=== PATIENT | female | born 1965 | race Two or more races ===

== ENCOUNTER 2022-02-08 09:37 | Inpatient (IN) | payer BC ==
[2022-02-08 10:44] VITALS: BMI 17.8
[2022-02-08] MEDS ORDERED: BISMUTH SUBSALICYLATE 262 MG/15 ML BTL PO PRN (11:23)
[2022-02-08] MEDS ORDERED: MAG HYDROX/AL HYDROX/SIMETH 30 ML UNIT-DOSE CUP PO PRN (11:23)
[2022-02-08] MEDS ORDERED: NICOTINE POLACRILEX 2 MG GUM BUC PRN (11:23)
[2022-02-08] MEDS ORDERED: ACETAMINOPHEN 325 MG TABLET (FP) PO PRN ×2 (11:23)
[2022-02-08] MEDS ORDERED: IBUPROFEN 400 MG TABLET (FP) PO PRN (11:23)
[2022-02-08] MEDS ORDERED: BENZOCAINE/MENTHOL (CHLORASEPTIC ) LOZENGE MM PRN (11:23)
[2022-02-08] MEDS ORDERED: DICYCLOMINE HCL 10 MG CAPSULE PO PRN (11:23)
[2022-02-08] MEDS ORDERED: NICOTINE 10 MG CARTRIDGE (INHALER) IH PRN (11:23)
[2022-02-08] MEDS ORDERED: ONDANSETRON *ODT* 4 MG TABLET SL PRN (11:23)
[2022-02-08] MEDS ORDERED: MAGNESIUM CITRATE 300 ML BOTTLE PO PRN (11:23)
[2022-02-08] MEDS ORDERED: MAGNESIUM HYDROX 2400MG/30ML ORAL SUSPENSION 30 ML CUP PO PRN (11:23)
[2022-02-08] MEDS ORDERED: LOPERAMIDE HCL 2 MG CAPSULE PO PRN (11:23)
[2022-02-08] MEDS ORDERED: NALOXONE HCL (KLOXXADO) 8 MG SPRAY NS PRN (11:23)
[2022-02-08] MEDS ORDERED: IBUPROFEN 600 MG TABLET (FP) PO PRN (11:23)
[2022-02-08] MEDS: PANTOPRAZOLE 20 MG TABLET PO SCH (12:08)
[2022-02-08] MEDS: PRENATAL VITAMINS W/ FOLIC ACID TABLET (FP) PO SCH (12:08)
[2022-02-08] MEDS: METHOCARBAMOL 500 MG TABLET PO PRN ×2 (14:31→17:32)
[2022-02-08] MEDS: hydrOXYzine PAMOATE 25 MG CAPSULE (FP) PO PRN ×3 (14:31→22:27)
[2022-02-08] MEDS: ARIPiprazole 10 MG TABLET PO SCH (15:00)
[2022-02-08] MEDS: SERTRALINE HCL 50 MG TABLET (FP) PO SCH (15:04)
[2022-02-08 15:39] LABS: HEMATOCRIT 32.4 % (32.4-45.2); HEMOGLOBIN 10.9 GM/dL (10.7-15.3); MCH 32.3 pg (25.7-33.7); MCHC 33.6 g/dl (32.0-36.0); MEAN CELL VOLUME 96.1 fl (80-96); MEAN PLT VOLUME 7.4 fl (7.5-11.1); PLATELET COUNT 351 10^3/uL (134-434); RBC 3.37 M/mm3 (3.60-5.2); RDW 18.2 % (11.6-15.6); WHITE BLOOD COUNT 4.6 K/mm3 (4.0-10.0)
[2022-02-08 16:20] LABS: CALCIUM 8.9 mg/dL (8.5-10.1)
[2022-02-08 16:21] LABS: ALBUMIN 3.6 g/dl (3.4-5.0); BLOOD UREA NITROGEN 11.5 mg/dL (7-18)
[2022-02-08 16:24] LABS: CREATININE 0.7 mg/dL (0.55-1.3)
[2022-02-08 16:26] LABS: BILIRUBIN,TOTAL 0.6 mg/dL (0.2-1); TOT PROT 7.6 g/dl (6.4-8.2)
[2022-02-08] MEDS: chlordiazePOXIDE HCL 25 MG CAPSULE PO SCH ×2 (17:32→22:27)
[2022-02-08] MEDS ORDERED: MELATONIN 5 MG TABLETS PO SCH (22:00)
[2022-02-08] MEDS ORDERED: THIAMINE HCL 100 MG TABLET (FP) PO SCH (22:00)
[2022-02-08 22:33] VITALS: RESP 18
[2022-02-09] MEDS: hydrOXYzine PAMOATE 25 MG CAPSULE (FP) PO PRN (02:52)
[2022-02-09] MEDS: chlordiazePOXIDE HCL 25 MG CAPSULE PO SCH ×3 (06:00→17:43)
[2022-02-09] MEDS: PRENATAL VITAMINS W/ FOLIC ACID TABLET (FP) PO SCH (09:32)
[2022-02-09] MEDS: ARIPiprazole 10 MG TABLET PO SCH (09:33)
[2022-02-09 09:51] VITALS: BP 151/96; PULSE 70; TEMP 97.3
[2022-02-09] MEDS: SERTRALINE HCL 50 MG TABLET (FP) PO SCH (10:40)
[2022-02-09] MEDS: PANTOPRAZOLE 20 MG TABLET PO SCH (10:40)
[2022-02-10] MEDS ORDERED: chlordiazePOXIDE HCL 25 MG CAPSULE PO SCH (05:00)
[2022-02-11] MEDS ORDERED: chlordiazePOXIDE HCL 10 MG CAPSULE PO SCH (05:00)
[2022-02-12] MEDS ORDERED: chlordiazePOXIDE HCL 10 MG CAPSULE PO SCH (05:00)
[2022-02-13] MEDS ORDERED: chlordiazePOXIDE HCL 10 MG CAPSULE PO ONE (05:00)
== END 2022-02-09 23:22 | disposition short-term general hospital (02) | DRG 775 ==
LOC: YASAS 09:37 → Y6N 11:26
PROVIDERS: ADMIT Allergy & Immunology; ATTEND Surgery
PROC: HZ2ZZZZ Detoxification Services for Substance Abuse Treatment (ICD-10-PCS; principal; 2022-02-08)
DX: F10.230 Alcohol dependence with withdrawal, uncomplicated (principal); F12.20 Cannabis dependence, uncomplicated; F17.210 Nicotine dependence, cigarettes, uncomplicated; F33.1 Major depressive disorder, recurrent, moderate; F10.24 Alcohol dependence with alcohol-induced mood disorder; F10.282 Alcohol dependence with alcohol-induced sleep disorder; J45.909 Unspecified asthma, uncomplicated; K42.9 Umbilical hernia without obstruction or gangrene; K21.9 Gastro-esophageal reflux disease without esophagitis; R10.13 Epigastric pain; R11.10 Vomiting, unspecified; Z87.11 Personal history of peptic ulcer disease; Z98.84 Bariatric surgery status
CPT/HCPCS: 36415; 80053; 85027; 86780; 93005; 93010; C9803-CS; Q0162; U0003; U0005

== ENCOUNTER 2022-02-09 10:19 | Inpatient (IN) | payer BC ==
[2022-02-09] MEDS ORDERED: ACETAMINOPHEN 1000 MG/100 ML BAG IVPB ONE (10:34)
[2022-02-09] MEDS ORDERED: SODIUM CHLORIDE 0.9% 500 ML INFUS.BAG IV ONE ×2 (10:34→19:45)
[2022-02-09] MEDS ORDERED: ACETAMINOPHEN INJECTION 100 ML IVPB ONE (10:48)
[2022-02-09 11:44] LABS: CHLORIDE 104 mmol/L (98-107); SODIUM 136 mmol/L (136-145)
[2022-02-09 11:46] LABS: ALBUMIN 3.2 g/dl (3.4-5.0); BLOOD UREA NITROGEN 9.6 mg/dL (7-18); CALCIUM 8.9 mg/dL (8.5-10.1); CO2 27 mmol/L (21-32); GLUCOSE,RANDOM 84 mg/dL (74-106); LIPASE 68 U/L (73-393); MAGNESIUM 1.9 mg/dL (1.8-2.4)
[2022-02-09 11:49] LABS: CREATININE 0.7 mg/dL (0.55-1.3)
[2022-02-09 11:50] LABS: BILIRUBIN,TOTAL 0.3 mg/dL (0.2-1); HEMATOCRIT 34.1 % (32.4-45.2); HEMOGLOBIN 11.1 GM/dL (10.7-15.3); MCH 31.1 pg (25.7-33.7); MCHC 32.6 g/dl (32.0-36.0); MEAN CELL VOLUME 95.4 fl (80-96); MEAN PLT VOLUME 8.6 fl (7.5-11.1); PLATELET COUNT 399 10^3/uL (134-434); RBC 3.57 M/mm3 (3.60-5.2); RDW 18.4 % (11.6-15.6); SGOT/AST 71 U/L (15-37); TOT PROT 7.4 g/dl (6.4-8.2); WHITE BLOOD COUNT 3.5 K/mm3 (4.0-10.0)
[2022-02-09 11:52] LABS: ALK PHOS 96 U/L (45-117)
[2022-02-09 11:54] LABS: ANION GAP 4 MMOL/L (8-16); SGPT/ALT 40 U/L (13-61)
[2022-02-09] MEDS ORDERED: morphine CARPU-JECT 4 MG/1 ML DISP.SYRIN IVPUSH ONE ×2 (12:05→13:45)
[2022-02-09] MEDS ORDERED: FAMOTIDINE 20 MG/50 ML IVPB 20 MG/50 ML MG IVPB ONE ×2 (12:05→12:49)
[2022-02-09] MEDS ORDERED: MAG HYDROX/AL HYDROX/SIMETH 30 ML UNIT-DOSE CUP PO ONE (12:05)
[2022-02-09 12:26] LABS: ANISOCYTOSIS 1+; MACROCYTOSIS 0
[2022-02-09] MEDS ORDERED: morphine SULFATE 4 MG/ML VIAL ONE ×2 (12:49→14:53)
[2022-02-09] MEDS ORDERED: MAG HYDROX/AL HYDROX/SIMETH 30 ML UNIT-DOSE CUP ONE (12:49)
[2022-02-09 13:53] LABS: BLOOD UREA NITROGEN 9.1 mg/dL (7-18); CALCIUM 8.7 mg/dL (8.5-10.1)
[2022-02-09 13:57] LABS: CREATININE 0.6 mg/dL (0.55-1.3)
[2022-02-09 15:55] LABS: URINE APPEARANCE CLEAR; URINE BILIRUBIN NEGATIVE (NEGATIVE); URINE COLOR YELLOW; URINE GLUCOSE (UA) NEGATIVE (NEGATIVE); URINE KETONE NEGATIVE (NEGATIVE); URINE LEUK ESTERASE NEGATIVE (NEGATIVE); URINE NITRITE NEGATIVE (NEGATIVE); URINE PROTEIN NEGATIVE (NEGATIVE)
[2022-02-09 15:57] LABS: URINE RBC 14 /uL (0-23.9)
[2022-02-09 15:58] LABS: EPI CELLS 5 /uL (0-25.1); HYALINE CASTS 0 /uL (0-3.1); URINE BACTERIA 84 /uL (0-1359); URINE WBC 7 /uL (0-25.8)
[2022-02-09] MEDS ORDERED: HYDROmorphone HCL CARPU-JECT 2 MG/1 ML DISP.SYRIN IVPUSH ONE (17:11)
[2022-02-09] MEDS ORDERED: HYDROmorphone HCl 2 MG/ML VIAL ONE (17:21)
[2022-02-09] MEDS ORDERED: LACTATED RINGERS SOLUTION 1,000 ML/1,000 ML INFUS.BAG IV SCH ×2 (20:00→23:45)
[2022-02-09] MEDS: busPIRone HCL 5 MG TABLET PO SCH (22:29)
[2022-02-10] MEDS ORDERED: LORazepam 1 MG TABLET PO PRN (00:20)
[2022-02-10] MEDS: LORazepam 2 MG TABLET PO SCH ×3 (01:47→13:07)
[2022-02-10 03:14] VITALS: RESP 20; BMI 17.0
[2022-02-10] MEDS ORDERED: ALBUTEROL SO4 HFA INHALER IH PRN (04:15)
[2022-02-10 09:22] LABS: EOS % 1.9 % (0-4.5); HEMATOCRIT 33.9 % (32.4-45.2); HEMOGLOBIN 11.1 GM/dL (10.7-15.3); LYMPH % 11.2 % (8-40); MCH 31.8 pg (25.7-33.7); MCHC 32.8 g/dl (32.0-36.0); MEAN CELL VOLUME 96.9 fl (80-96); MEAN PLT VOLUME 7.7 fl (7.5-11.1); MONO % 7.4 % (3.8-10.2); NEUT % 78.5 % (42.8-82.8); PLATELET COUNT 303 10^3/uL (134-434); RDW 18.6 % (11.6-15.6); WHITE BLOOD COUNT 4.8 K/mm3 (4.0-10.0)
[2022-02-10] MEDS: busPIRone HCL 5 MG TABLET PO SCH (09:37)
[2022-02-10 09:47] LABS: ALBUMIN 3.3 g/dl (3.4-5.0); BLOOD UREA NITROGEN 7.8 mg/dL (7-18)
[2022-02-10 09:49] LABS: CALCIUM 8.8 mg/dL (8.5-10.1)
[2022-02-10 09:51] LABS: CREATININE 0.6 mg/dL (0.55-1.3); PHOSPHOROUS 3.6 mg/dL (2.5-4.9)
[2022-02-10 09:53] LABS: BILIRUBIN,TOTAL 0.5 mg/dL (0.2-1); TOT PROT 6.8 g/dl (6.4-8.2)
[2022-02-10] MEDS ORDERED: NICOTINE 7 MG/24 HOURS TOPICAL PATCH TD SCH (10:00)
[2022-02-10] MEDS ORDERED: ARIPiprazole 15 MG TABLET PO SCH (10:00)
[2022-02-10] MEDS ORDERED: FOLIC ACID 1 MG TABLET (FP) PO SCH (10:00)
[2022-02-10] MEDS ORDERED: THIAMINE HCL 100 MG TABLET (FP) PO SCH ×2 (10:00)
[2022-02-10] MEDS ORDERED: SERTRALINE HCL 50 MG TABLET (FP) PO SCH (10:00)
[2022-02-10] MEDS ORDERED: ARIPiprazole 5 MG TABLET PO SCH (11:17)
[2022-02-10] MEDS ORDERED: LORazepam 1 MG TABLET PO SCH (11:52)
[2022-02-10 15:35] VITALS: BP 143/89; PULSE 80; TEMP 97.6
[2022-02-11] MEDS ORDERED: LORazepam 1 MG TABLET PO SCH (01:00)
[2022-02-12] MEDS ORDERED: LORazepam 0.5 MG TABLET PO PRN
[2022-02-12] MEDS ORDERED: LORazepam 0.5 MG TABLET PO SCH (01:00)
[2022-02-13] MEDS ORDERED: LORazepam 0.5 MG TABLET PO ONE (01:00)
== END 2022-02-10 16:05 | disposition left against medical advice (07) | DRG 254 ==
LOC: JER 10:19 → JERBED 19:40 → J8W 20:37
PROVIDERS: ADMIT Internal Medicine; ATTEND Internal Medicine
DX: K43.0 Incisional hernia with obstruction, without gangrene (principal); K86.1 Other chronic pancreatitis; K76.0 Fatty (change of) liver, not elsewhere classified; K86.89 Other specified diseases of pancreas; D72.819 Decreased white blood cell count, unspecified; F12.90 Cannabis use, unspecified, uncomplicated; F17.210 Nicotine dependence, cigarettes, uncomplicated; J45.909 Unspecified asthma, uncomplicated; R11.10 Vomiting, unspecified
CPT/HCPCS: 0241U-QW; 36415; 71045-TC-FY; 73590-TC-RT-FY; 74177-TC; 76705-TC; 76775-TC; 80048; 80053; 81003; 82962; 83605; 83690; 83735; 84100; 84484; 85025; 87086; 93005; 93010; 99285-25; Q9967

== ENCOUNTER 2022-05-30 14:03 | Inpatient (IN) | payer BC ==
[2022-05-30 20:15] VITALS: BMI 20.2
[2022-05-30] MEDS ORDERED: IBUPROFEN 400 MG TABLET (FP) PO PRN (20:40)
[2022-05-30] MEDS ORDERED: ACETAMINOPHEN 325 MG TABLET (FP) PO PRN ×2 (20:40)
[2022-05-30] MEDS ORDERED: POLYETHYLENE GLYCOL (HEALTHYLAX) 3350 17 GM PACKET PO PRN (20:40)
[2022-05-30] MEDS ORDERED: BISMUTH SUBSALICYLATE 524 MG/30 ML PO PRN (20:40)
[2022-05-30] MEDS ORDERED: MAGNESIUM HYDROX 2400MG/30ML ORAL SUSPENSION 30 ML CUP PO PRN (20:40)
[2022-05-30] MEDS ORDERED: hydrOXYzine PAMOATE 25 MG CAPSULE (FP) PO PRN (20:40)
[2022-05-30] MEDS ORDERED: DICYCLOMINE HCL 10 MG CAPSULE PO PRN (20:40)
[2022-05-30] MEDS ORDERED: LOPERAMIDE HCL 2 MG CAPSULE PO PRN (20:40)
[2022-05-30] MEDS ORDERED: BENZOCAINE/MENTHOL (CHLORASEPTIC ) LOZENGE MM PRN (20:40)
[2022-05-30] MEDS ORDERED: NICOTINE POLACRILEX 2 MG GUM BUC PRN (20:40)
[2022-05-30] MEDS ORDERED: NALOXONE HCL (KLOXXADO) 8 MG SPRAY NS PRN (20:40)
[2022-05-30] MEDS ORDERED: ONDANSETRON *ODT* 4 MG TABLET SL PRN (20:40)
[2022-05-30] MEDS ORDERED: MAG HYDROX/AL HYDROX/SIMETH 30 ML UNIT-DOSE CUP PO PRN (20:40)
[2022-05-30] MEDS ORDERED: MELATONIN 5 MG TABLETS PO SCH (22:00)
[2022-05-30] MEDS: THIAMINE HCL 100 MG TABLET (FP) PO SCH (22:44)
[2022-05-30] MEDS: METHOCARBAMOL 500 MG TABLET PO PRN (22:44)
[2022-05-31] MEDS: SERTRALINE HCL 50 MG TABLET (FP) PO SCH (10:48)
[2022-05-31] MEDS: PRENATAL VITAMINS W/ FOLIC ACID TABLET (FP) PO SCH (10:48)
[2022-05-31] MEDS: METHOCARBAMOL 500 MG TABLET PO PRN (10:49)
[2022-05-31] MEDS: chlordiazePOXIDE HCL 25 MG CAPSULE PO SCH ×3 (10:49→22:31)
[2022-05-31] MEDS: NICOTINE 14 MG/24 HOURS TOPICAL PATCH TD SCH (10:49)
[2022-05-31] MEDS: ARIPiprazole 15 MG TABLET PO SCH (10:51)
[2022-05-31 13:50] LABS: HEMATOCRIT 30.7 % (32.4-45.2); HEMOGLOBIN 10.3 GM/dL (10.7-15.3); MCH 30.6 pg (25.7-33.7); MCHC 33.7 g/dl (32.0-36.0); MEAN CELL VOLUME 90.9 fl (80-96); PLATELET COUNT 470 10^3/uL (134-434); RBC 3.38 M/mm3 (3.60-5.2); RDW 20.8 % (11.6-15.6); WHITE BLOOD COUNT 3.4 K/mm3 (4.0-10.0)
[2022-05-31 14:45] LABS: ALBUMIN 3.6 g/dl (3.4-5.0); CALCIUM 9.4 mg/dL (8.5-10.1)
[2022-05-31] MEDS ORDERED: NICOTINE 10 MG CARTRIDGE (INHALER) IH SCH (14:45)
[2022-05-31 14:48] LABS: BILIRUBIN,TOTAL 0.3 mg/dL (0.2-1); CREATININE 0.8 mg/dL (0.55-1.3); TOT PROT 7.8 g/dl (6.4-8.2)
[2022-05-31] MEDS: NICOTINE 10 MG CARTRIDGE (INHALER) IH PRN (15:15)
[2022-05-31] MEDS: cloNIDine HCL 0.1 MG TABLET PO PRN (15:15)
[2022-05-31] MEDS ORDERED: SUVOREXANT 10 MG TABLET PO PRN (22:00)
[2022-05-31] MEDS: THIAMINE HCL 100 MG TABLET (FP) PO SCH (22:31)
[2022-06-01] MEDS: chlordiazePOXIDE HCL 25 MG CAPSULE PO SCH ×4 (05:42→22:19)
[2022-06-01] MEDS: ARIPiprazole 15 MG TABLET PO SCH (10:19)
[2022-06-01] MEDS: SERTRALINE HCL 50 MG TABLET (FP) PO SCH (10:20)
[2022-06-01] MEDS: NICOTINE 14 MG/24 HOURS TOPICAL PATCH TD SCH (10:20)
[2022-06-01] MEDS: PRENATAL VITAMINS W/ FOLIC ACID TABLET (FP) PO SCH (10:20)
[2022-06-01] MEDS: NICOTINE 10 MG CARTRIDGE (INHALER) IH PRN ×2 (15:13→17:22)
[2022-06-01] MEDS: IBUPROFEN 600 MG TABLET (FP) PO PRN (20:59)
[2022-06-01] MEDS: THIAMINE HCL 100 MG TABLET (FP) PO SCH (22:18)
[2022-06-01] MEDS: METHOCARBAMOL 500 MG TABLET PO PRN (22:18)
[2022-06-02] MEDS: IBUPROFEN 600 MG TABLET (FP) PO PRN ×2 (02:19→10:23)
[2022-06-02] MEDS: chlordiazePOXIDE HCL 25 MG CAPSULE PO SCH ×2 (04:54→10:21)
[2022-06-02] MEDS: cloNIDine HCL 0.1 MG TABLET PO PRN (07:36)
[2022-06-02 09:38] VITALS: BP 119/79; PULSE 79; RESP 18; TEMP 98
[2022-06-02] MEDS: SERTRALINE HCL 50 MG TABLET (FP) PO SCH (09:45)
[2022-06-02] MEDS: ARIPiprazole 15 MG TABLET PO SCH (09:46)
[2022-06-02] MEDS: PRENATAL VITAMINS W/ FOLIC ACID TABLET (FP) PO SCH (09:46)
[2022-06-02] MEDS: NICOTINE 10 MG CARTRIDGE (INHALER) IH PRN (09:46)
[2022-06-02] MEDS: NICOTINE 14 MG/24 HOURS TOPICAL PATCH TD SCH (09:46)
[2022-06-02] MEDS: METHOCARBAMOL 500 MG TABLET PO PRN (10:23)
[2022-06-03] MEDS ORDERED: chlordiazePOXIDE HCL 10 MG CAPSULE PO SCH (05:00)
[2022-06-04] MEDS ORDERED: chlordiazePOXIDE HCL 10 MG CAPSULE PO SCH (05:00)
[2022-06-05] MEDS ORDERED: chlordiazePOXIDE HCL 10 MG CAPSULE PO ONE (05:00)
== END 2022-06-02 12:23 | disposition left against medical advice (07) | DRG 770 ==
LOC: YASAS 14:03 → Y6N 21:30 → UNDOADMIN 21:30
PROVIDERS: ADMIT Allergy & Immunology; ATTEND Surgery
PROC: HZ2ZZZZ Detoxification Services for Substance Abuse Treatment (ICD-10-PCS; principal; 2022-05-30)
DX: F10.230 Alcohol dependence with withdrawal, uncomplicated (principal); F13.20 Sedative, hypnotic or anxiolytic dependence, uncomplicated; F12.20 Cannabis dependence, uncomplicated; F17.210 Nicotine dependence, cigarettes, uncomplicated; F33.1 Major depressive disorder, recurrent, moderate; J45.20 Mild intermittent asthma, uncomplicated; K21.9 Gastro-esophageal reflux disease without esophagitis; R55 Syncope and collapse; Z87.11 Personal history of peptic ulcer disease; Z98.84 Bariatric surgery status
CPT/HCPCS: 36415; 80053; 82962; 85027; 86780; C9803-CS; Q0162; U0003; U0005

== ENCOUNTER 2022-06-01 09:13 | Emergency (ER) | payer BC ==
[2022-06-01 09:30] VITALS: BP 141/80; PULSE 66; RESP 18; TEMP 98.9; BMI 20.5
[2022-06-01] MEDS ORDERED: SODIUM CHLORIDE 0.9% 500 ML INFUS.BAG IV ONE (10:24)
[2022-06-01 11:11] LABS: HEMATOCRIT 32.7 % (32.4-45.2); HEMOGLOBIN 10.8 GM/dL (10.7-15.3); MCH 30.2 pg (25.7-33.7); MCHC 33.1 g/dl (32.0-36.0); MEAN CELL VOLUME 91.4 fl (80-96); MEAN PLT VOLUME 7.1 fl (7.5-11.1); PLATELET COUNT 543 10^3/uL (134-434); RBC 3.58 M/mm3 (3.60-5.2); RDW 21.4 % (11.6-15.6); WHITE BLOOD COUNT 3.9 K/mm3 (4.0-10.0)
[2022-06-01 11:28] LABS: CALCIUM 9.7 mg/dL (8.5-10.1)
[2022-06-01 11:29] LABS: ALBUMIN 3.7 g/dl (3.4-5.0); BLOOD UREA NITROGEN 11.2 mg/dL (7-18)
[2022-06-01 11:32] LABS: CREATININE 0.6 mg/dL (0.55-1.3)
[2022-06-01 11:33] LABS: BILIRUBIN,TOTAL 0.4 mg/dL (0.2-1); TOT PROT 7.9 g/dl (6.4-8.2)
[2022-06-01 12:27] LABS: ANISOCYTOSIS 0; MACROCYTOSIS 0; TARGET CELLS 1+
== END 2022-06-01 13:07 | disposition left against medical advice (07) ==
LOC: JER 09:13
DX: R55 Syncope and collapse (principal)
CPT/HCPCS: 36415; 71046-TC-FY; 80053; 82962; 84484; 85025; 93005; 93010; 99285-25

== ENCOUNTER 2023-02-05 17:57 | Inpatient (IN) | payer BC ==
[2023-02-05 20:05] VITALS: BMI 20.4
[2023-02-05] MEDS ORDERED: METHOCARBAMOL 500 MG TABLET PO PRN (22:37)
[2023-02-05] MEDS ORDERED: DICYCLOMINE HCL 10 MG CAPSULE PO PRN (22:37)
[2023-02-05] MEDS ORDERED: LOPERAMIDE HCL 2 MG CAPSULE PO PRN (22:37)
[2023-02-05] MEDS ORDERED: ACETAMINOPHEN 325 MG TABLET (FP) PO PRN (22:37)
[2023-02-05] MEDS ORDERED: BENZOCAINE/MENTHOL (CHLORASEPTIC ) LOZENGE MM PRN (22:37)
[2023-02-05] MEDS ORDERED: MAG HYDROX/AL HYDROX/SIMETH 30 ML UNIT-DOSE CUP PO PRN (22:37)
[2023-02-05] MEDS ORDERED: NALOXONE HCL 0.4 MG/ML VIAL IM PRN (22:37)
[2023-02-05] MEDS ORDERED: NALOXONE HCL (KLOXXADO) 8 MG SPRAY NS PRN (22:37)
[2023-02-05] MEDS ORDERED: IBUPROFEN 400 MG TABLET (FP) PO PRN (22:37)
[2023-02-05] MEDS ORDERED: ONDANSETRON *ODT* 4 MG TABLET SL PRN (22:37)
[2023-02-05] MEDS ORDERED: BISMUTH SUBSALICYLATE 524 MG/30 ML PO PRN (22:37)
[2023-02-05] MEDS ORDERED: P-EPHED 60MG/TRIPROLIDI 2.5MG TABLET PO PRN (22:37)
[2023-02-05] MEDS ORDERED: IBUPROFEN 600 MG TABLET (FP) PO PRN (22:37)
[2023-02-05] MEDS ORDERED: guaiFENesin 600 MG TABLET.ER (FP) PO PRN (22:37)
[2023-02-05] MEDS ORDERED: POLYETHYLENE GLYCOL (HEALTHYLAX) 3350 17 GM PACKET PO PRN (22:37)
[2023-02-05] MEDS ORDERED: hydrOXYzine PAMOATE 25 MG CAPSULE (FP) PO PRN (22:37)
[2023-02-05] MEDS ORDERED: BENZONATATE 200 MG CAPSULE PO PRN (22:37)
[2023-02-05] MEDS ORDERED: MAGNESIUM HYDROX 2400MG/30ML ORAL SUSPENSION 30 ML CUP PO PRN (22:37)
[2023-02-05] MEDS ORDERED: HYDROCORTISONE 0.5% TOPICAL OINTMENT TUBE TP PRN (23:19)
[2023-02-06] MEDS: diazePAM 5 MG TABLET PO SCH ×5 (00:01→22:05)
[2023-02-06] MEDS ORDERED: diazePAM 5 MG TABLET ONE (00:24)
[2023-02-06] MEDS ORDERED: ARIPiprazole 30 MG TABLET PO SCH (10:00)
[2023-02-06] MEDS: PRENATAL VITAMINS W/ FOLIC ACID TABLET (FP) PO SCH (10:06)
[2023-02-06] MEDS: SERTRALINE HCL 50 MG TABLET (FP) PO SCH (10:07)
[2023-02-06] MEDS: NICOTINE POLACRILEX 2 MG GUM BUC PRN ×3 (10:09→22:39)
[2023-02-06] MEDS ORDERED: amLODIPine BESYLATE 10 MG TABLET (FP) PO ONE (10:33)
[2023-02-06] MEDS: ARIPiprazole 15 MG TABLET PO SCH (10:47)
[2023-02-06 11:25] LABS: HEMATOCRIT 29.5 % (32.4-45.2); HEMOGLOBIN 10.5 GM/dL (10.7-15.3); MCH 37.5 pg (25.7-33.7); MCHC 35.6 g/dl (32.0-36.0); MEAN CELL VOLUME 105.4 fl (80-96); MEAN PLT VOLUME 7.7 fl (7.5-11.1); PLATELET COUNT 201 10^3/uL (134-434); RDW 14.7 % (11.6-15.6)
[2023-02-06 11:27] LABS: CHLORIDE 100 mmol/L (98-107); POTASSIUM 4.1 mmol/L (3.5-5.1); SODIUM 133 mmol/L (136-145)
[2023-02-06 11:30] LABS: ALBUMIN 3.4 g/dl (3.4-5.0); ANION GAP 8 mmol/L (4-13); BLOOD UREA NITROGEN 8.2 mg/dL (7-18); CALCIUM 8.4 mg/dL (8.5-10.1); CO2 26 mmol/L (21-32); GLUCOSE,RANDOM 82 mg/dL (74-106)
[2023-02-06 11:33] LABS: CREATININE 0.6 mg/dL (0.55-1.3); SGOT/AST 47 U/L (15-37); SGPT/ALT 54 U/L (13-61)
[2023-02-06 11:35] LABS: BILIRUBIN,TOTAL 0.3 mg/dL (0.2-1); TOT PROT 6.8 g/dl (6.4-8.2)
[2023-02-06 11:36] LABS: ALK PHOS 211 U/L (45-117)
[2023-02-06] MEDS: diazePAM 5 MG TABLET PO PRN (13:28)
[2023-02-06] MEDS ORDERED: MELATONIN 5 MG TABLETS PO SCH (22:00)
[2023-02-06] MEDS ORDERED: SUVOREXANT 10 MG TABLET PO PRN (22:00)
[2023-02-06] MEDS: THIAMINE HCL 100 MG TABLET (FP) PO SCH (22:03)
[2023-02-06] MEDS: BACITRACIN 0.9 GM PACKET TP SCH (22:05)
[2023-02-07] MEDS: diazePAM 5 MG TABLET PO SCH ×2 (05:13→13:21)
[2023-02-07 09:25] LABS: BASO % 0.7 % (0-2.0); EOS % 3.9 % (0-4.5); HEMATOCRIT 31.2 % (32.4-45.2); HEMOGLOBIN 10.9 GM/dL (10.7-15.3); LYMPH % 29.9 % (8-40); MCH 36.7 pg (25.7-33.7); MCHC 35.1 g/dl (32.0-36.0); MEAN CELL VOLUME 104.5 fl (80-96); MEAN PLT VOLUME 7.5 fl (7.5-11.1); NEUT % 50.5 % (42.8-82.8); PLATELET COUNT 227 10^3/uL (134-434); RBC 2.98 M/mm3 (3.60-5.2); WHITE BLOOD COUNT 2.2 K/mm3 (4.0-10.0)
[2023-02-07] MEDS: BACITRACIN 0.9 GM PACKET TP SCH ×2 (09:29→23:04)
[2023-02-07] MEDS: PRENATAL VITAMINS W/ FOLIC ACID TABLET (FP) PO SCH (09:29)
[2023-02-07] MEDS: SERTRALINE HCL 50 MG TABLET (FP) PO SCH (09:30)
[2023-02-07] MEDS: ARIPiprazole 15 MG TABLET PO SCH (09:31)
[2023-02-07] MEDS ORDERED: PERMETHRIN 5% TOPICAL CREAM 60 GM TUBE TP ONE (09:38)
[2023-02-07] MEDS ORDERED: amLODIPine BESYLATE 5 MG TABLET (FP) PO SCH (10:00)
[2023-02-07] MEDS: NICOTINE POLACRILEX 2 MG GUM BUC PRN (10:23)
[2023-02-07] MEDS ORDERED: PNEUMOC 20-VAL CONJ-DIP CRM/PF 0.5 ML SYRINGE IM ONE (12:00)
[2023-02-07] MEDS: FERROUS SO4 325 MG TABLET (FP) PO SCH ×2 (13:21→23:05)
[2023-02-07 16:55] LABS: IRON SERUM 109 ug/dL (50-175)
[2023-02-07 16:57] LABS: TOTAL IRON BINDING CAPACITY 286 ug/dL (250-450)
[2023-02-07] MEDS: diazePAM 5 MG TABLET PO PRN (17:27)
[2023-02-07 18:24] VITALS: BP 132/87; PULSE 95; RESP 16; TEMP 97.8
[2023-02-07 19:23] LABS: EPI CELLS 6 /uL (0-25.1); HYALINE CASTS 0 /uL (0-3.1); URINE APPEARANCE CLEAR; URINE BACTERIA 57 /uL (0-1359); URINE BILIRUBIN NEGATIVE (NEGATIVE); URINE COLOR YELLOW; URINE GLUCOSE (UA) NEGATIVE (NEGATIVE); URINE KETONE NEGATIVE (NEGATIVE); URINE LEUK ESTERASE TRACE (NEGATIVE); URINE NITRITE NEGATIVE (NEGATIVE); URINE PROTEIN NEGATIVE (NEGATIVE); URINE RBC 12 /uL (0-23.9); URINE UROBILINOGEN 0.2 mg/dL (0.2-1.0); URINE WBC 14 /uL (0-25.8)
[2023-02-07] MEDS ORDERED: DOCUSATE SODIUM 100 MG CAPSULE (FP) PO SCH (22:00)
[2023-02-07] MEDS: THIAMINE HCL 100 MG TABLET (FP) PO SCH (23:05)
[2023-02-08] MEDS ORDERED: diazePAM 5 MG TABLET PO SCH (06:00)
[2023-02-09] MEDS ORDERED: diazePAM 5 MG TABLET PO ONE (06:00)
== END 2023-02-07 19:45 | disposition left against medical advice (07) | DRG 770 ==
LOC: YASAS 17:57 → Y6N 23:26
PROVIDERS: ADMIT Allergy & Immunology; ATTEND Surgery
PROC: HZ2ZZZZ Detoxification Services for Substance Abuse Treatment (ICD-10-PCS; principal; 2023-02-05)
DX: F10.230 Alcohol dependence with withdrawal, uncomplicated (principal); F12.20 Cannabis dependence, uncomplicated; F17.210 Nicotine dependence, cigarettes, uncomplicated; F10.282 Alcohol dependence with alcohol-induced sleep disorder; F10.24 Alcohol dependence with alcohol-induced mood disorder; D64.9 Anemia, unspecified; D72.819 Decreased white blood cell count, unspecified; I10 Essential (primary) hypertension; J45.20 Mild intermittent asthma, uncomplicated; Z86.11 Personal history of tuberculosis; Z87.11 Personal history of peptic ulcer disease
CPT/HCPCS: 26055; 36415; 80053; 80307; 81003; 83540; 83550; 85025; 85027; 86780; 87635; 90677